=== PATIENT | male | born 1980 | race Caucasian/White ===

== ENCOUNTER 2017-09-22 18:30 | Emergency (ER) | payer OTHER ==
[~2017-09-22] VITALS: Ht 195.6 cm; Wt 113.6 kg
[2017-09-22 18:35] VITALS: BP 121/65; PULSE 70; TEMP 97.5
[2017-09-22] MEDS ORDERED: FLEXERIL 1010 MG/TAB PO (19:04)
== END 2017-09-22 19:32 | disposition home or self-care (01) ==
LOC: COL.ER 18:30
DX: S39.012A Strain of muscle, fascia and tendon of lower back, initial encounter (principal); M62.831 Muscle spasm of calf; Z87.39 Personal history of other diseases of the musculoskeletal system and connective tissue; X50.0XXA Overexertion from strenuous movement or load, initial encounter
CPT/HCPCS: J1885; J2360